=== PATIENT | female | born 1985 | race Caucasian/White ===

== ENCOUNTER 2018-01-10 16:16 | Outpatient (CLI) | payer MEDICAID | END 2018-01-10 16:30 | disposition left against medical advice (07) | LOC: OBT 16:16 → L-D 16:18 → OBT 16:30 | DX: Z53.21 Procedure and treatment not carried out due to patient leaving prior to being seen by health care provider (principal) ==

== ENCOUNTER 2018-01-14 16:28 | Outpatient (CLI) | payer MEDICAID | END 2018-01-14 18:57 | disposition left against medical advice (07) | LOC: OBT 16:28 → L-D 16:29 → OBT 18:34 → L-D 18:34 | DX: O36.8130 Decreased fetal movements, third trimester, not applicable or unspecified (principal); Z3A.37 37 weeks gestation of pregnancy | CPT/HCPCS: 76815; 76818 ==